=== PATIENT | female | born 1980 | race Hispanic/Latino ===

== ENCOUNTER 2017-10-06 04:10 | Emergency (ER) | payer SELFPAY ==
[2017-10-06] MEDS ORDERED: Ketorolac Tromethamine 30 MG/ML VIAL ONE (04:26)
[2017-10-06 04:47] LABS: INR-International Normal Ratio 0.9; PTT 32.2 SEC (22.9-36.1); Prothrombin Time 12.2 SEC (12.0-14.7)
[2017-10-06 04:48] LABS: D-Dimer Test 0.43 *mcg/mL (0.27-0.43)
[2017-10-06 04:55] LABS: ALT (SGPT) 81 U/L (8-55); AST (SGOT) 83 U/L (5-34); Albumin 4.1 g/dL (3.5-5.0); Alkaline Phosphatase 98 U/L (40-150); Anion Gap 17 mmol/L (10-20); BUN (Urea Nitrogen) 10 mg/dL (7.0-18.7); Bilirubin, Total 0.3 mg/dL (0.2-1.2); Calc. Creatinine Clearance 0 mL/min (70-130); Calcium 9.1 mg/dL (7.8-10.44); Carbon Dioxide 19 mmol/L (22-29); Chloride 109 mmol/L (98-107); Estimated GFR-MDRD Greater than 90; Globulin 3.6 g/dL (2.4-3.5); Glucose 112 mg/dL (70-105); Potassium 3.7 mmol/L (3.5-5.1); Protein, Total 7.7 g/dL (6.0-8.3); Sodium 141 mmol/L (136-145)
[2017-10-06 04:56] LABS: CKMB 0.3 ng/mL (0-6.6); Troponin I Less than 0.010 ng/mL (< 0.028)
[2017-10-06 04:59] LABS: Band 22 % (5-11); Hemoglobin 14.3 g/dL (12.0-16.0); Lymphocytes 21 % (21-51); MDiff Complete? YES; Mean Corpuscular Hemoglobin 32.8 pg (27.0-31.0); Mean Platelet Volume 5.9 fL (7.4-10.4); Monocytes 5 % (0-10); Neutrophil 52 % (42-75); PLT Morphology Comment Appears Adequate; Platelet Count 340 thou/uL (130-400); RBC Distribution Width 10.9 % (11.5-14.5); RBC Morphology Normal; Red Blood Cell (RBC) Count 4.35 mill/uL (4.20-5.40); Small Platelets SLIGHT; White Blood Cell (WBC) Count 14.5 thou/uL (4.8-10.8)
--- NOTE | 2017-10-06 08:00 | RAD ---
PA AND LATERAL VIEWS CHEST: HISTORY: Fever. Cough. Chest pain. FINDINGS: The heart size is normal. The lungs are well expanded without focal areas of consolidation, pneumoth orax, or pleural effusions. No acute osseous abnormalities are seen. IMPRESSION: No acute process. POS: [facility]
== END 2017-10-06 05:33 | disposition home or self-care (01) ==
LOC: BURERS 04:10
DX: J11.1 Influenza due to unidentified influenza virus with other respiratory manifestations (principal); I10 Essential (primary) hypertension
CPT/HCPCS: 71020; 80053; 82553; 83605; 83880; 84484; 85025; 85379; 85610; 85730; 93005; 94760; 96374; J1885